=== PATIENT | female | born 1950 | race Two or more races ===

== ENCOUNTER 2022-04-27 18:56 | Emergency (ER) | payer OTHER ==
[~2022-04-27] VITALS: Ht 165.1 cm; Wt 81.8 kg
[2022-04-27] MEDS ORDERED: ACETAMINOPHEN 325 MG TAB PO ONE (19:45)
[2022-04-27 19:58] VITALS: BP 125/88
== END 2022-04-27 20:04 | disposition home or self-care (01) ==
LOC: EDBD 18:56 → ER 18:56
DX: F41.9 Anxiety disorder, unspecified (principal); K21.9 Gastro-esophageal reflux disease without esophagitis; F17.210 Nicotine dependence, cigarettes, uncomplicated

== ENCOUNTER 2024-07-15 22:32 | Emergency (ER) | payer BC, OTHER ==
[~2024-07-15] VITALS: Ht 152.4 cm; Wt 88.1 kg
[2024-07-15 23:52] VITALS: BP 138/64; PULSE 65; RESP 16; TEMP 98.3; O2SAT 96
[2024-07-16] MEDS ORDERED: AZIT-43 PO (00:39)
[2024-07-16] MEDS ORDERED: ACET500T58 PO (00:39)
--- NOTE | 2024-07-16 00:39 | ED.PDOC ---
Eye-HPI HPI Comments 74-year-old female presents to ER with complaints of sore throat x1 day. Patient reports that he has been experiencing sore throat pain, runny nose and right-sided earache pain x1 day. She rates her current pain a 10/10. Denies use of medications for current symptoms and presents to ER ambulatory on arrival, with steady gait, in no distress. Denies fever, difficulty swallowing, nausea/vomiting, cough or any further symptoms/complaints Chief Complaint: Sore Throat Time Seen by MD: 22:43 Primary Care Provider: UNKNOWN Reviewed Notes: Nurses Notes, Medications, Allergies Allergies: Coded Allergies: NO KNOWN ALLERGIES (Unverified , 07/15/24) Home Meds Active Scripts Acetaminophen (Acetaminophen) 500 Mg Tab, 500 MG PO Q4HPRN, #30 TAB 0 Refills Prov:MAYRA ROCHA 07/16/24 Azithromycin (Azithromycin) 250 Mg Tab, 250 MG PO DAILY MDD 500 for 5 Days, #6 TAB 0 Refills 2 TABLETS ORALLY ON DAY ONE, THEN 1 TABLET ORALLY DAILY FOR 4 DAYS Prov:MAYRA ROCHA 07/16/24 Information Source: Patient Mode of Arrival: Ambulatory Past Medical History PAST MEDICAL HISTORY: GERD Surgical History: 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 SPANISH LECTURER History Family History Family History: Unknown Social History Smoker: Cigarettes, Less Than 1 Pack/Day Alcohol: Denies ETOH Use Drugs: Denies Drug Use Lives In: Home Constitutional: denies: chills, diaphoresis, fatigue, fever, malaise, sweats, weakness, others EENTM: reports: others (As stated in HPI) Respiratory: denies: cough, hemoptysis, orthopnea, SOB at rest, shortness of breath, SOB with excertion, stridor, wheezing, others Cardiovascular: denies: chest pain, dizzy spells, diaphoresis, Dyspnea on exertion, edema, irregular heart beat, left arm pain, lightheadedness, palpit ations, PND, syncope, others Gastrointestinal: denies: abdomen distended, abdominal pain, blood streaked b owels, constipated, diarrhea, dysphagia, difficulty swallowing, hematemesis, melena, nausea, poor appetite, poor fluid intake, rectal bleeding, rectal pain, vomiting, others Genitourinary: denies: abnormal vagina bleeding, burning, dyspareunia, dysuria, flank pain, frequency, hematuria, incontinence, pain, , vagina discharge, urgency, others Neurological: denies: dizziness, fainting, headache, left sided numbness, left sided weakness, numbness, paresthesia, pre-existing deficit, right sided numbness, right sided weakness, seizure, speech problems, tingling, tremors, weakness, others Musculoskeletal: denies: back pain, gout, joint pain, joint swelling, muscle pain, muscle stiffness, neck pain, others Integumetry: denies: bruises, change in color, change in hair/nails, dryness, laceration, lesions, lumps, rash, wounds, others Allergic/Immunocompromised: denies: Difficulty Healing, Frequent Infections, Hives, Itching, others Hematologic/Lymphatic: denies: anemia, blood clots, easy bleeding, easy brui sing, swollen glands, others Endocrine: denies: excessive hunger, excessive sweating, excessive thirst, ex cessive urination, flushing, intolerance to cold, intolerance to heat, unexplained weight gain, unexplained weight loss, others Psychiatric: denies: anxiety, bipolar disorder, depression, hopeless, panic disorder, schizophrenia, sleepless, suicidal, others Physical Exam General Appearance: No Apparent Distress, Obese HEENT: PERRL/EOMI, Pharyngeal Erythema (Mild pharyngeal erythema noted. No exudates appreciated. Uvula-normal), TMs Normal Neck: Full Range of Motion, Non-Tender, Normal Respiratory: Chest Non-Tender, Lungs Clear, No Accessory Muscle Use, No Respiratory Distress, Normal Breath Sounds Cardiovascular: No Murmur, No Gallop, Regular Rate/Rhythm Breast Exam: Deferred Gastrointestinal: NOT DONE Genitalia: Deferred Pelvic: Deferred Rectal: Deferred Extremities: Normal capillary refill, Normal range of motion Neurologic: Alert, No Motor Deficits, Normal Affect, Normal Mood, No Sensory Deficits Cerebellar Function: Normal Reflexes: Normal Skin: Dry, Normal Color, Warm Peripheral Pulses: 2+ Radial (R), 2+ Radial (L), 2+ Brachial (R), 2+ Brachial (L) Lymphatic: No Adenopathy Was a procedure done? Was a procedure done?: No Sedation Sedation?: No EENT DIFF Eye: N/A Ear: Otitis Media Sore Throat: Peritonsillar Abscess, URI X-Ray, Labs, Meds, VS Vital Signs Date Time Temp Pulse Resp B/P (MAP) Pulse Ox O2 Delivery O2 Flow Rate FiO2 07/15/24 23:52 96 Room Air* 0 21 07/15/24 23:52 98.3 65 16 138/64 (88) 96 98.3 07/15/24 22:32 98.3 65 16 138/64 (88) 96 98.3 Current Medications Medications (Trade) Dose Ordered Sig/Iglesia Route Start Time Stop Time Status Last Admin Acetaminophen (Tylenol Tablet) 650 mg ONCE ONCE PO 07/16/24 00:45 07/16/24 00:46 07/16/24 00:40 Tylenol 650 mg p.o. ordered Patient tolerating p.o. intake well and in no distress prior to discharge Advised to drink plenty of fluids Smoking cessation discussed and advised Advised to follow up with PCP in 1-2 days Patient verbalized understanding and agreeable with current plan of care Advised to return to ER immediately if symptoms worsen Time of 1ST Reevaluation: 00:12 Reevaluation 1ST: N/A Patient Education/Counseling: Diagnosis, Treatment, Prognosis, Need For Follow Up Family Education/Counseling: No Family Present Departure 1 Departure Time of Disposition: 00:32 Impression: Primary Impression: Pharyngitis Qualified Codes: J02.9 - Acute pharyngitis, unspecified Disposition: HOME / SELF CARE / HOMELESS Condition: Stable e-Prescriptions Acetaminophen (Acetaminophen) 500 Mg Tab 500 MG PO Q4HPRN, #30 TAB 0 Refills Prov: MAYRA ROCHA 07/16/24 Azithromycin (Azithromycin) 250 Mg Tab 250 MG PO DAILY MDD 500 for 5 Days, #6 TAB 0 Refills 2 TABLETS ORALLY ON DAY ONE, THEN 1 TABLET ORALLY DAILY FOR 4 DAYS Prov: MAYRA ROCHA 07/16/24 Discharged With: Self Critical Care Note Critical Care Time?: No Stability Stability form required: No Heart Score Heart Score: Heart Score Response (Comments) Value History N/A 0 EKG N/A 0 Age N/A 0 Risk Factors N/A 0 Troponin N/A 0 Total 0 MAYRA ROCHA Jul 16, 2024 00:39
[2024-07-16] MEDS: ACETAMINOPHEN 325 MG TAB PO ONE (00:40)
== END 2024-07-16 00:50 | disposition home or self-care (01) ==
LOC: ER 22:32
DX: J02.9 Acute pharyngitis, unspecified (principal); F17.210 Nicotine dependence, cigarettes, uncomplicated; K21.9 Gastro-esophageal reflux disease without esophagitis; Z98.890 Other specified postprocedural states; Z79.899 Other long term (current) drug therapy

== ENCOUNTER 2024-12-24 16:03 | Emergency (ER) | payer BC, OTHER ==
[~2024-12-24] VITALS: Ht 160 cm; Wt 84.9 kg
[~2024-12-24 16:03] MED LIST: ACET500T58 PO; AZIT-43 PO
--- NOTE | 2024-12-24 16:50 | ED.PDOC ---
History of Present Illness HPI Comments Ms. Roberts is a 74 year old female with PMHx of GERD, who presents today chief complaint of back pain after a fall. The patient states that on Monday she lost her balance and fell from a step stool landing on her back. She states hit the back of her and her back against the floor and was unable to get up for 15 minutes after the fall. Although she denies lost of consciousness after the fall, she states she since has had localized right sided back pain described as sharp, non-radiating, 9/10 intensity, exacerbated by deep inspiration, without relieving factors, and headache described as bitemporal, throbbing, 6/10 intensity, associated with nausea, without aggravating and relieving factors. She denies vomiting, numbness, weakness, disorientation, changes in vision, tinnitus, chest pain, shortness of breath, abdominal pain, and palpitations. Due to persistence of symptoms, she presents to the ED for evaluation. On initial evaluation, the patient seems uncomfortable due to pain, vitals are stable, without overt signs of distress. Chief Complaint: Fall Injury Time Seen by MD: 16:24 Primary Care Provider: UNKNOWN Allergies: Coded Allergies: NO KNOWN ALLERGIES (Unverified , 07/15/24) Home Meds Active Scripts Acetaminophen (Acetaminophen) 500 Mg Tab, 500 MG PO Q4HPRN, #30 TAB 0 Refills Prov:MAYRA ROCHA 07/16/24 Azithromycin (Azithromycin) 250 Mg Tab, 250 MG PO DAILY MDD 500 for 5 Days, #6 TAB 0 Refills 2 TABLETS ORALLY ON DAY ONE, THEN 1 TABLET ORALLY DAILY FOR 4 DAYS Prov:MAYRA ROCHA 07/16/24 Information Source: Patient, Relative (Child) Mode of Arrival: Ambulatory Severity: Mild Timing: Days Duration: Since onset Past Medical History PAST MEDICAL HISTORY: GERD Surgical History: Surgical History (Other): Right Knee Replacement 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 Pertinent FIREARMS INSTRUCTOR History Family History Family History: Reviewed,noncontributory to illness Social History Smoker: Cigarettes, Less Than 1 Pack/Day (Has smoked 1 pack every 3 days for 30 years) Alcohol: Denies ETOH Use Drugs: Denies Drug Use Lives In: Home Constitutional: denies: chills, diaphoresis, fatigue, fever, malaise, sweats, weakness EENTM: denies: blurred vision, double vision, ear bleeding, ear discharge, ear drainage, ear pain, ear ringing, eye pain, eye redness, hearing loss, mouth pain, nasal discharge, nose bleeding, nose congestion, nose pain, photophobia, throat pain Respiratory: denies: cough, hemoptysis, orthopnea, shortness of breath Cardiovascular: denies: chest pain, dizzy spells, diaphoresis, Dyspnea on exertion, edema, irregular heart beat, left arm pain, lightheadedness, palpitations, syncope Gastrointestinal: reports: nausea; denies: abdomen distended, abdominal pain, blood streaked bowels, constipated, diarrhea, dysphagia, difficulty swallowing, hematemesis, melena, poor appetite, poor fluid intake, rectal bleeding, rectal pain, vomiting Genitourinary: denies: burning, dysuria, flank pain, frequency, hematuria, incontinence, pain, urgency Neurological: reports: headache; denies: dizziness, fainting, numbness, paresthesia, pre-existing deficit, seizure, tingling, tremors, weakness Musculoskeletal: reports: back pain, neck pain; denies: joint pain, joint swelling, muscle pain, muscle stiffness Integumetry: denies: bruises, laceration, lesions, lumps, rash, wounds Physical Exam General Appearance: Normal, Obese HEENT: Normal ENT Inspection, Other (Normocephalic, atraumatic, no bruising noted along scalp, no pain to palpation of head or scalp, normal reactive pupils, EOM intact, pink conjunctiva, pink moist mucous membrane) Neck: Other (Normal range of motion, no bruising or trauma observed, pain to extension of neck, pain on palpation of right side of next and trapezius ) Respiratory: Other ( Bilateral chest expansion, no bruising is noted, no chest wall tenderness on palpation, pain on palpation right side of posterior rib cage, vesicular murmurs present in almost all lung mcadmas, no crackles present ) Cardiovascular: No Edema, No Murmur, Normal Peripheral Pulses, Regular Rate/Rh ythm Breast Exam: Deferred Gastrointestinal: Non Tender, No Pulsatile Mass, Normal Bowel Sounds, Soft Genitalia: Deferred Pelvic: Deferred Rectal: Deferred Extremities: Normal capillary refill, Normal inspection, Normal range of motion, Non-tender, No pedal edema Neurologic: Alert, Normal Affect, Normal Mood Cerebellar Function: Normal Reflexes: NOT DONE Skin: Normal Color Peripheral Pulses: 3+ dorsalis pedis (R), 3+ dorsalis pedis (L) Lymphatic: Other (No cervical adenopathy ) Was a procedure done? Was a procedure done?: No Differential Dx Considerations may include: Rib fracture, abrasion, hematoma, muscle strain, epidural hematoma, subdural hematoma, contusion. skull fracture, complex migraine, tension headache X-Ray, Labs, Meds, VS Vital Signs Date Time Temp Pulse Resp B/P (MAP) Pulse Ox O2 Delivery O2 Flow Rate FiO2 12/24/24 16:08 98.0 75 19 111/64 97 98.0 Time of 1ST Reevaluation: 18:30 Reevaluation 1ST: Improved Patient Education/Counseling: Diagnosis, Treatment Family Education/Counseling: No Family Present Comments The patient presented today with chief complaint of right-sided back pain secondary to a fall 3 days ago On initial evaluation, the patient seems well, uncomfortable due to pain, vitals are stable, with no overt signs of distress On physical examination, there is no bruising, trauma, or deformities noted, there is pain on palpation to right-sided posterior ribcage Right rib x-ray shows no fractures or malalignment Head CT shows no acute intracranial abnormality The patient was given acetaminophen 325 mg p.o. once for pain and a lidocaine patch Vitals are stable The patient is considered stable for discharge home with recommendations to follow up with her PCP and acetaminophen for pain as needed SEPSIS Sepsis Screen Date sepsis recognized/suspect: Dec 24, 2024 Time Sepsis recognized/suspect: 1613 Recent Procedure: No (T) On Antibiotic Therapy: No Respiratory Rate >20: No Heart Rate >90: No Temp<36 C (96.8 F) or >38.3 C: No SBP <90 or MAP <65 mmHG: No New Acute Mental Status Change: No Is the patient on CPAP, BIPAP,: No Physician Orders R Rib Xray (12/24/24 16:46) Head Without Contrast (12/24/24 17:11) Vital Signs Date Time Temp Pulse Resp B/P (MAP) Pulse Ox O2 Delivery O2 Flow Rate FiO2 12/24/24 16:08 98.0 75 19 111/64 97 98.0 Departure 1 Departure Time of Disposition: 18:51 Impression: Primary Impression: Contusion of rib on right side Disposition: 01 HOME / SELF CARE / HOMELESS Condition: Stable Additional Instructions: You presented today with chief complaint of right-sided back pain secondary to a fall 3 days ago On physical examination, there is no bruising, trauma, or deformities noted, there is pain on palpation to right-sided posterior ribcage Your work up which includes a right rib xray and a head CT are benign You were given acetaminophen 325 mg p.o. once for pain and a lidocaine patch Your pain may be due to many factors such as muscle strain and contusion secondary to the fall You are considered stable for discharge home We recommend acetaminophen for pain as needed We recommend you follow up with your PCP within 1-3 days If your symptoms persist or worsen, or should you have any further concerns, please return to the ED. Critical Care Note Critical Care Time?: No Stability Stability form required: ADRIAN Armenta RESIDENT Dec 24, 2024 16:50
--- NOTE | 2024-12-24 17:40 | DVH ---
EXAM: XY R RIB XRAY DATE OF SERVICE: 12/24/2024 05:14 PM ORDERING PHYSICIAN: JERAD LINDSEY RESIDENT REASON FOR EXAM: Pain after fall TECHNIQUE: AP and oblique images of the right-sided ribs were acquired. COMPARISON: None FINDINGS: There is no acute right-sided rib fracture. Imaged lungs are clear. No pneumothorax is seen. IMPRESSION: No acute right-sided rib fracture.
--- NOTE | 2024-12-24 18:09 | DVH ---
CLINICAL HISTORY: Recent fall TECHNIQUE: Helical scanning was performed of the head from the skull base to the vertex. Multiplanar reconstructions were performed. This exam was performed according to our departmental dose optimization program. Up-to-date CT equipment and radiation dose reduction techniques are utilized as appropriate. CTDI 54 DLP 967 COMPARISON: None FINDINGS: There is no evidence for acute intracranial hemorrhage, acute ischemic changes, mass, mass effect, or extra-axial fluid collection. There is no hydrocephalus or midline shift. There is no effacement of the cerebral sulci and basal subarachnoid cisterns. The amaya-white matter differentiation is well maintained. The imaged paranasal sinuses are clear. IMPRESSION: NO ACUTE INTRACRANIAL ABNORMALITY SEEN.
[2024-12-24 18:59] VITALS: BP 119/78; PULSE 85; RESP 16; O2SAT 98
[2024-12-24 19:02] VITALS: TEMP 98.9
[2024-12-24] MEDS: LIDOCAINE 5% TOPICAL PATCH TOP ONE (19:02)
[2024-12-24] MEDS: ACETAMINOPHEN 325 MG TAB PO ONE (19:02)
== END 2024-12-24 19:23 | disposition home or self-care (01) ==
LOC: ER 16:03
DX: S20.211A Contusion of right front wall of thorax, initial encounter (principal); M54.9 Dorsalgia, unspecified; K21.9 Gastro-esophageal reflux disease without esophagitis; F17.210 Nicotine dependence, cigarettes, uncomplicated; Z96.651 Presence of right artificial knee joint; Z98.890 Other specified postprocedural states; W17.89XA Other fall from one level to another, initial encounter; Y93.89 Activity, other specified; Y92.89 Other specified places as the place of occurrence of the external cause; Y99.8 Other external cause status
CPT/HCPCS: 70450; 71101